=== PATIENT | female | born 2000 | race Caucasian/White ===

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

== ENCOUNTER 2023-04-26 17:50 | Emergency (ER) | payer OTHER, SELFPAY ==
--- NOTE | ~2023-04-26 | CT_ITS ---
EXAMINATION: CT abdomen pelvis w con DATE: 04/26/2023 21:05 INDICATION: RLQ pain TECHNIQUE: Computed tomography (CT) of the abdomen and pelvis was performed with 100 mL Omnipaque-350 intravenous contrast. Automated exposure control and iterative reconstruction technique were employe d. The dose-length product was 220.07 mGy-cm. COMPARISON: None. FINDINGS: Lower thorax: Unremarkable Liver: Normal. Biliary/Gallbladder: Gallbladder is normal. No bile duct dilation. Pancreas: No mass or duct dilation. Spleen: Normal. Adrenals:No mass. Kidneys: No mass, stone, or hydronephrosis. GI tract: Small hiatal hernia. Mild distal esophageal and gastric wall edema. No small or large bowel dilation. Appendix not confidently identified. Mesentery/Peritoneum: No ascites, mass, or free air. Retroperitoneum: No mass. Pelvis: Thickened endometrium, likely due to menstrual phase. 9 mm x 16 mm hypoenhancing low density area in the endometrium of the left uterus. Moderate free pelvic fluid, within physiologic range. Nor mal ovaries. Soft Tissues: Soft tissues and body wall unremarkable. Bones: No acute osseous finding. IMPRESSION: 1. No acute abdominopelvic process. 2. The appendix was not confidently visualized however there was no significant inflammatory process detected in the right lower quadrant. 3. 9 x 16 mm hypoenhancing subendometrial focus, may represent a submucosal fibroid or possibly a iram rine synechia. Consider outpatient pelvic ultrasound for further characterization. Reviewed, dictated and finalized at location K. IMPRESSION: 1. No acute abdominopelvic process. 2. The appendix was not confidently visualized however there was no significant inflammatory process detected in the right lower quadrant. 3. 9 x 16 mm hypoenhancing subendometrial focus, may represent a submucosal fib roid or possibly a uterine synechia. Consider outpatient pelvic ultrasound for further characterization.
[2023-04-26 18:19] VITALS: BP 112/62; PULSE 69; RESP 16; TEMP 36.8; O2SAT 99
[2023-04-26 19:21] LABS: Basophils Percent Auto 0.5 % (0.2-1.2); Eosinophils Absolute Auto 0.1 K/mm3 (0-0.3); Eosinophils Percent Auto 1.3 % (0-4.4); Hematocrit 38.2 % (37.0-47.0); Hemoglobin 12.6 g/dL (12.0-15.0); Immature Granulocyte Absolute 0.02 K/mm3 (0.00-0.031); Immature Granulocyte Percent A 0.2 % (0-0.5); Lymphocytes Absolute Auto 2.28 K/mm3 (0.9-3.2); Mean Corpuscular Hemoglobin 29.2 pg (26-34); Mean Corpuscular Volume 88.6 fl (80-100); Mean Platelet Volume 9.3 fl (7.4-10.4); Monocytes Absolute Auto 0.5 K/mm3 (0.1-0.6); Monocytes Percent Auto 6.6 % (2.6-8.5); Neutrophils Absolute Auto 5.2 K/mm3 (1.3-6.7); Neutrophils Percent Auto 63.4 % (45.5-73.1); Platelet Count Result 255 k/mm3 (150-375); Red Blood Count 4.31 M/mm3 (4.2-5.4); Red Cell Distribution Width 12.4 % (11.5-14.5); White Blood Count 8.2 K/mm3 (4.5-10.0)
[2023-04-26 19:32] LABS: Alanine Aminotransferase 19 U/L (6-35); Albumin Level 4.3 g/dL (3.5-5.1); Alkaline Phosphatase 67 U/L (38-126); Anion Gap 6 mmol/L (8-16); Aspartate Amino Transferase 31 U/L (14-36); Bilirubin,Total 0.9 mg/dL (0.2-1.3); Blood Urea Nitrogen 13 mg/dL (7-17); Calcium 8.6 mg/dL (8.4-10.2); Carbon Dioxide 26 mmol/L (22-30); Chloride 104 mmol/L (98-107); Estimated CRCL calculation 118 ml/min; Estimated Glomerular Filt Rate > 60; Glucose 83 mg/dL (65-110); Lipase 36 U/L (23-300); Potassium 3.7 mmol/L (3.4-5.0); Sodium 136 mmol/L (137-145)
[2023-04-26 20:09] LABS: Appearance Urine Clear (Clear); Bacteria Urine 1+ /hpf; Bilirubin Urine Negative (Negative); Blood Urine Negative (Negative); Color Urine Yellow (Yellow); Glucose Urine UA Negative (Negative); Ketones Urine 1+ mg/dL (Negative); Leukocyte Esterase Ur Negative LEU/UL (Negative); Nitrate Urine Negative (Negative); Non Pathogenic Casts 0-2; Protein Urine 1+ mg/dL (Negative); RBC Urine 0-2 /hpf (0-2); Specific Grav Ur 1.026 (1.001-1.035); Squamous Epithelial Cell Urine Occasional /hpf (Few); Urobilinogen Urine 0.2 mg/dL (<2.0); WBC Urine 0-5 /hpf
--- NOTE | 2023-04-26 20:11 | PC.NURSE ---
Pt c/o epigastric pain onset 0100 this morning and lasted until 0700 after she took some ibuprofen. Pt states pain is worse with movement and thinks it's related to her job where she does a lot of bending. Pt went to urgent care where they did some xrays to rule out any displaced ribs but the images were normal. Mom states she brought pt to ED because she took pt to the chiropractor earlier today and pt had RLQ tenderness with palpation. Pt currently denies any pain. Denies n/v/d.
[2023-04-26 20:16] LABS: Add Urine Microscopic? YES
--- NOTE | 2023-04-26 21:26 | ED.ABDPAIN ---
HPI - Abdominal Pain General Chief Complaint: Abdominal Pain Stated Complaint: UPPER ABD PAIN Time Seen by Provider: 04/26/23 20:09 History of Present Illness HPI narrative: Patient is a 22-year-old female who presents ER with epigastric pain. Intermittent over the last 2 weeks. 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 Patient is been taking ibuprofen which helps her discomfort. No association with eating or drinking or lying down. Reports its sharp and throbbing and burning at times. She was seen by her chiropractor today who noted that she had some right lower quadrant discomfort and discussed that she may have a appendicitis. Patient denies urinary symptoms. She has had physiologic vaginal discharge without change and normal vaginal bleeding related to period. Typically discomfort is worsened with movement. Patient had not noted right lower quadrant discomfort prior to evaluation by chiropractor. Related Data Allergies Allergy/AdvReac Type Severity Reaction Status Date / Time No Known Allergies Allergy Verified 09/07/20 07:57 Review of Systems Review of Systems: All systems reviewed & are unremarkable except as noted in HPI and below Constitutional: Constitutional: Denies chills, Denies fatigue and Denies fever(s) ENT: Denies nasal congestion and Denies sore throat Cardiovascular: Cardiovascular: Denies chest pain Respiratory: Respiratory: Denies cough and Denies dyspnea Gastrointestinal: Gastrointestinal: Reports abdominal pain, Denies constipation, Denies diarrhea, Denies nausea and Denies vomiting Genitourinary: Genitourinary: Denies nocturia, Denies dysuria and Denies flank pain PMF Past Medical History Medical History (Updated 04/27/23 @ 00:00 by Mark Baptiste) Healthy female adult Surgical History Surgical History (Updated 04/26/23 @ 21:30 by Bong Gamble MD) No history of previous surgery Exam Narrative: GENERAL: Well-appearing, well-nourished, and in no acute distress. HEAD: Normocephalic, atraumatic. ENT: Mucous membranes moist. CHEST: Clear to auscultation. No respiratory distress. HEART: Regular rate and rhythm. Normal peripheral pulses. ABDOMEN: Soft, mild discomfort right lower quadrant without guarding, nondistended, normal active bowel sounds. EXTREMITIES: Normal range of motion. No edema. SKIN: Warm, dry, no rash. NEURO: Alert and oriented x3. PSYCH: Normal mood and affect. Course Course Emergency Course: CT scan with some edema of the distal esophagus and of the stomach which may represent gastritis which would be consistent with patient's epigastric discomfort. Patient also informed of need for outpatient pelvic ultrasound given abnormality of the endometrium on CT scan. No appendicitis. Patient resting comfortably and will be discharged. Vital Signs Vital signs: Vital Signs Temperature 98.2 F 04/26/23 18:19 Pulse Rate 69 04/26/23 18:19 Respiratory Rate 16 04/26/23 18:19 Blood Pressure 112/62 04/26/23 18:19 Pulse Oximetry 99 04/26/23 18:19 Oxygen Delivery Room Air 04/26/23 18:19 Temperature 98.2 F 04/26/23 18:19 Pulse Rate 69 04/26/23 18:19 Respiratory Rate 16 04/26/23 18:19 Blood Pressure 112/62 04/26/23 18:19 Pulse Oximetry 99 04/26/23 18:19 Oxygen Delivery Room Air 04/26/23 18:19 MDM - Abdominal Pain Lab Data 04/26/23 19:14 04/26/23 19:14 Labs: Lab Results 04/26/23 04/26/23 Range/Units 19:14 19:36 WBC 8.2 (4.5-10.0) K/mm3 RBC 4.31 (4.2-5.4) M/mm3 Hgb 12.6 (12.0-15.0) g/dL Hct 38.2 (37.0-47.0) % MCV 88.6 (80-100) fl MCH 29.2 (26-34) pg MCHC 33.0 (32-36) g/dl RDW 12.4 (11.5-14.5) % Plt Count 255 (150-375) k/mm3 MPV 9.3 (7.4-10.4) fl Immature Gran % (Auto) 0.2 (0-0.5) % Neut % (Auto) 63.4 (45.5-73.1) % Lymph % (Auto) 28.0 (18.3-44.2) % [place] % (
== END 2023-04-26 22:10 | disposition home or self-care (01) ==
PROVIDERS: Emergency Medicine; Emergency Provider Emergency Medicine
DX: K21.9 Gastro-esophageal reflux disease without esophagitis (principal); R93.89 Abnormal findings on diagnostic imaging of other specified body structures
CPT/HCPCS: 36415; 74177; 80053; 81001; 81025; 83690; 85025; 99284; Q9967